=== PATIENT | female | born 1990 | race Caucasian/White ===

== ENCOUNTER → 2022-04-19 14:35 | Outpatient (BNVA) | payer MEDICAID, SELFPAY | PROVIDERS: PCP Registered Nurse; Visit Provider Registered Nurse | DX: O26.90 Pregnancy related conditions, unspecified, unspecified trimester (principal); N92.6 Irregular menstruation, unspecified; K52.9 Noninfective gastroenteritis and colitis, unspecified; Z3A.00 Weeks of gestation of pregnancy not specified | CPT/HCPCS: 81000; 81025 ==

== ENCOUNTER 2022-11-22 15:16 | Emergency (ER) | payer MEDICAID, SELFPAY ==
[2022-11-22 15:25] VITALS: BP 136/86; PULSE 103; RESP 17; TEMP 36.6; O2SAT 97; BMI 31.4
--- NOTE | 2022-11-22 15:42 | W.ED.ABDPA2 ---
HPI - Abdominal Pain General: Chief Complaint: Abdominal Pain Stated Complaint: 5-6 weeks , cramping Time Seen by Provider: 11/22/22 15:34 Source: patient Mode of arrival: ambulatory Limitations: no limitations History of Present Illness: 32-year-old female who is roughly 5 to 6 weeks she states that she had a ground-level fall onto her abdomen today and was concerned she may have injured the baby. States she had some very mild cramping she denies any pain currently she denies any vaginal bleeding. Has no other complaints at this time Associated Symptoms: Denies chills, diarrhea, dysuria, fever(s), nausea and vomiting Review of Systems Const: Denies: fever(s), chills, body aches or change in appetite ENMT: Denies: throat pain or dental pain Card: Denies: chest pain Resp: Denies: dyspnea GI: Denies: abdominal pain, nausea, vomiting or diarrhea : Denies: dysuria Musc: Denies: neck pain or back pain Skin/Breast: Denies: rash Neuro: Denies: headache(s) PFSH ED PFSH: Family History Other Cancer Diabetes Heart problem Hypertension Social History Smoking and tobacco status: current every day smoker Alcohol intake: never Substance/Drug Use: never Physical Exam Const: COMMON NORMALS: no acute distress, patient oriented x3 and healthy appearing HENMT: COMMON NORMALS: normocephalic and atraumatic HEAD & SCALP: normocephalic and atraumatic Eye: COMMON NORMALS: conjunctivae normal CONJUNCTIVA: Yes conjunctivae normal Neck/C-Spine: COMMON NORMALS: full ROM and supple Chest: COMMONS NORMALS: normal inspection of the chest Resp: COMMON NORMALS: normal respiratory effort Cardio: COMMON NORMALS: regular rate, regular rhythm and No murmurs present (Cardio) RATE: regular rate RHYTHM: regular rhythm GI: COMMON NORMALS: Normal to inspection, nondistended, normoactive bowel sounds present, Soft to palpation, non-tender and no masses PALPATION: Yes Soft to palpation Extremity: COMMON NORMALS: normal to inspection and full ROM Neuro: COMMON NORMALS: patient oriented x3, moves all extremities and no focal motor deficits Psych: COMMON NORMALS: mental status grossly normal, Normal thought process present and cooperative THOUGHT PROCESS: Normal thought process present Skin: COMMON NORMALS: no rashes or lesions noted and no wounds GENERAL SKIN EXAM: no rashes or lesions noted Course Vital Signs: Vital signs: Vital Signs Temperature 97.9 F 11/22/22 15:25 Pulse Rate 103 H 11/22/22 15:25 Respiratory Rate 17 11/22/22 15:25 Blood Pressure 136/86 11/22/22 15:25 Pulse Oximetry 97 11/22/22 15:25 Oxygen Delivery Me thod Room Air 11/22/22 15:25 MDM - Abdominal Pain Medical Decision Making Patient presents here after a fall and is . Her abdominal exam here is benign she has no tenderness she has no vaginal bleeding. I did a bedside ultrasound patient is very early was able to see a gestational sac at roughly 5 weeks no definite IUP she has no signs of ectopic here she has a follow-up with her OB in 2 weeks I did inform her if she has worsening pain or bleeding she is to return she understands agrees to plan. No radiology studies performed this visit Discharge Plan Discharge Patient Disposition: Home Clinical Impression: Abdominal pain affecting , Fall Condition: Stable Prescriptions: No Action ondansetron HCl 4 mg tablet 4 mg PO BID 5 Days Qty: 10 0RF meloxicam 15 mg tablet 15 mg PO DAILY 30 Days Qty: 30 0RF Discharge Orders: Discharge ED (Routine); Ordered 11/22/22 Ordered By: Bobbi Reyna Referrals: Cecil Cedeño FNP [Primary Care Provider] - Discharge Diet: Advance as tolerated Discharge Activity: Resume usual activity Patient Instructions: Abdominal Pain in (ED) Coding Level of Care Code ED Assistant [employer] for [employer]
[2022-11-22 15:56] VITALS: PULSE 97; RESP 16; O2SAT 97
== END 2022-11-22 15:58 | disposition home or self-care (01) ==
PROVIDERS: Emergency Provider Emergency Medicine; PCP Registered Nurse
DX: O26.891 Other specified pregnancy related conditions, first trimester (principal); R10.9 Unspecified abdominal pain; O99.331 Smoking (tobacco) complicating pregnancy, first trimester; F17.210 Nicotine dependence, cigarettes, uncomplicated; Z3A.01 Less than 8 weeks gestation of pregnancy
CPT/HCPCS: 99281

== ENCOUNTER → 2022-12-01 12:54 | Outpatient (BNVA) | payer MEDICAID, SELFPAY | PROVIDERS: PCP Registered Nurse; Visit Provider Nurse Practitioner Women's Health | DX: Z34.90 Encounter for supervision of normal pregnancy, unspecified, unspecified trimester (principal); Z32.00 Encounter for pregnancy test, result unknown | CPT/HCPCS: 81025; 84315; 84702 ==

== ENCOUNTER → 2022-12-10 11:00 | Outpatient (BNVA) | payer MEDICAID, SELFPAY | PROVIDERS: PCP Registered Nurse; Visit Provider Nurse Practitioner Women's Health | DX: Z36.87 Encounter for antenatal screening for uncertain dates (principal) | CPT/HCPCS: 76817; 84702 ==

== ENCOUNTER → 2022-12-27 10:23 | Outpatient (BNVA) | payer MEDICAID, SELFPAY | PROVIDERS: PCP Registered Nurse; Visit Provider Nurse Practitioner Women's Health | DX: O20.9 Hemorrhage in early pregnancy, unspecified (principal); Z3A.00 Weeks of gestation of pregnancy not specified | CPT/HCPCS: 76817; 84702; 85025; 86850; 86900 ==

== ENCOUNTER → 2023-12-21 15:55 | Outpatient (BNVA) | payer MEDICAID, SELFPAY | PROVIDERS: PCP Registered Nurse; Visit Provider Podiatrist Foot & Ankle Surgery | DX: M79.671 Pain in right foot (principal); S92.911A Unspecified fracture of right toe(s), initial encounter for closed fracture; W18.09XA Striking against other object with subsequent fall, initial encounter | CPT/HCPCS: 73630; 99203 ==

== ENCOUNTER → 2025-02-26 09:03 | Outpatient (BNVA) | payer MEDICAID, SELFPAY | PROVIDERS: PCP Registered Nurse; Visit Provider Registered Nurse | DX: J06.9 Acute upper respiratory infection, unspecified (principal) | CPT/HCPCS: 87880 ==